=== PATIENT | female | born 1980 | race Caucasian/White ===

== ENCOUNTER 2020-04-15 11:21 | Emergency (ER) | payer SELFPAY ==
[~2020-04-15] VITALS: Ht 157 cm; Wt 72.5 kg
[2020-04-15] MEDS ORDERED: ONDANSETRON 4 MG/2 ML (SDV) Z0FRAN IVP ONE (12:15)
[2020-04-15] MEDS ORDERED: KETOROLAC 30 MG/ML VIAL IVP ONE (12:15)
[2020-04-15] MEDS ORDERED: NS IV 1000 ML 1,000 ML IV SCH (12:15)
[2020-04-15 12:34] LABS: POTASSIUM 4.1 MMOL/L (3.6-5.0)
[2020-04-15 12:35] LABS: CALCIUM 9.1 MG/DL (8.5-10.1)
--- NOTE | 2020-04-15 12:39 | ED Abdominal Pain ---
General Chief Complaint: Abdominal/GI Problems Stated Complaint: R SIDE PAIN/NAUSEA Nursing Triage Note: PT PRESENTS TO ED WITH COMPLAINTS OF R FLANK PAIN THAT RADIATES TO HER R LOWER ABDOMEN. PT REPORTS IS STARTED SUDDENLY THIS AM WHEN SHE WAS AT WORK. PT ALSO REPORTS ONE EPISODE OF NAUSEA AND VOMITING. Sepsis Screen: No Definite Risk Source of Information: Patient Exam Limitations: No Limitations History of Present Illness Date Seen by Provider: Apr 15, 2020 Time Seen by Provider: 12:35 Initial Comments Patient is a 40-year-old female who presents to the emergency department today with a chief complaint of right flank pain. Patient states her pain started suddenly this morning while she was at work. She has never had pain like this before. She does state that she has a family history of kidney stones one in her son and one in her sister. Patient states that she has had nausea and vomiting x1. She denies any GI complaints other than the nausea and vomiting. No diarrhea no black or bloody stools. No reported fevers or chills. No abno rmal vaginal discharge. She is not taken anything for her pain. All other review of systems reviewed and negative except as stated above. Timing/Duration: 4-6 Hours Severity/Quality: Severe Location: RLQ, Flank (Right flank) Radiation: RLQ Activities at Onset: Activity (Patient was at work at the onset of her pain) Modifying Factors: Improves With Vomiting Associated Symptoms: Denies Symptoms Allergies and Home Medications Allergies Coded Allergies: No Known Drug Allergies (Unverified , 04/15/20) Patient Home Medication List Home Medication List Reviewed: Yes Review of Systems Review of Systems Constitutional: see HPI EENTM: No Symptoms Reported Respiratory: No Symptoms Reported Cardiovascular: No Symptoms Reported Gastrointestinal: Abdominal Pain, Nausea, Vomiting Genitourinary: Denies Frequency, Denies Urgency Musculoskeletal: no symptoms reported Skin: no symptoms reported All Other Systems Reviewed Negative Unless Noted: Yes Past [id number]-[id number]-[id number] Hx Patient Social History Alcohol Use: Denies Use Smoking Status: Current Everyday Smoker Type Used: Cigarettes Recent Infectious Disease Expo: No Recent Hopitalizations: No Seasonal Allergies Seasonal Allergies: No Past Medical History Surgeries: Yes Section, Gallbladder Respiratory: No Cardiac: No Neurological: No Genitourinary: No Gastrointestinal: No Musculoskeletal: No Endocrine: No HEENT: No Cancer: No Psychosocial: No Integumentary: No Blood Disorders: No Physical Exam Vital Signs Vital Signs - First Documented 04/15/20 11:33 Temp 35.9 Pulse 73 Resp 18 B/P (MAP) 142/49 (80) Pulse Ox 100 Capillary Refill : Less Than 3 Seconds Height/Weight/BMI Height: '" Weight: lbs. oz. kg; 29.00 BMI Method: General Appearance: WD/WN, moderate distress HEENT: PERRL/EOMI Neck: full range of motion Respiratory: lungs clear, normal breath sounds, no respiratory distress, no accessory muscle use Cardiovascular: regular rate, rhythm, no murmur Gastrointestinal: normal bowel sounds, non tender, soft Extremities: normal range of motion, non-tender, normal inspection Neurologic/Psychiatric: alert, normal mood/affect, oriented x 3 Skin: normal color, warm/dry Progress/Results/Core Measures Results/Orders Lab Results Laboratory Tests Test 04/15/20 12:14 04/15/20 13:24 Range/Units Sodium Level 136 135-145 MMOL/L Potassium Level 4.1 3.6-5.0 MMOL/L Chloride Level 104 98-107 MMOL/L Carbon Dioxide Level 23 21-32 MMOL/L Anion Gap 9 5-14 MMOL/L Blood Urea Nitrogen 12 7-18 MG/DL Creatinine 1.09 0.60-1.30 MG/DL Estimat Glomerular Filtration Rate 55 BUN/Creatinine Ratio 11 Glucose Level 114 H 70-105 MG/DL Calcium Level 9.1 8.5-10.1 MG/DL Urine Color YELLOW Urine Clarity SL CLOUDY Urine pH 6.0 5-9 Urine Specific [place] 1.025 H 1.016-1.022 Urine Protein TRACE H NEGATIVE Urine Glucose (UA) NEGATIVE NEGATIVE Urine Ketones NEGATIVE NEGATIVE Urine Nitrite NEGATIVE NEGATIVE Urine Bilirubin NEGATIVE NEGATIVE Urine Urobilinogen 0.2 < = 1.0 MG/DL Urine Leukocyte Esterase NEGATIVE NEGATIVE Urine RBC (Auto) 3+ H NEGATIVE Urine RBC >100 H /HPF Urine WBC 0-2 /HPF Urine Squamous Epithelial Cells RARE /HPF Urine Crystals NONE /LPF Urine Bacteria NEGATIVE /HPF Urine Casts NONE /LPF Urine Mucus NEGATIVE /LPF Urine Culture Indicated NO My Orders Orders - GAURAV MCGHEE MD Ed Iv/Invasive Line Start (04/15/20 11:55) Ua Culture If Indicated (04/15/20 11:55) Basic Metabolic Panel (04/15/20 11:55) Urine Bedside (04/15/20 11:55) Ketorolac Injection (Toradol Injection) (04/15/20 12:15) Ondansetron Injection (Zofran Injectio (04/15/20 12:15) Ns Iv 1000 Ml (Sodium Chloride 0.9%) (04/15/20 12:15) Medications Given in ED Current Medications Medications Dose Ordered Sig/Mily Route Start Time Stop Time Status Last Admin Dose Admin Ketorolac Tromethamine 15 mg ONCE ONCE IVP 04/15/20 12:15 04/15/20 12:16 DC 04/15/20 12:22 15 MG Ondansetron HCl 8 mg ONCE ONCE IVP 04/15/20 12:15 04/15/20 12:16 DC 04/15/20 12:21 8 MG Vital Signs/I&O 04/15/20 11:33 Temp 35.9 Pulse 73 Resp 18 B/P (MAP) 142/49 (80) Pulse Ox 100 Blood Pressure Mean: 80 Progress Progress Note : Time: 12:36 Progress Note Patient did have an episode of nausea and vomiting while I was examining her in the room. Patient states that her pain subsided after vomiting. 1339 Patient remains pain-free. She is comfortable without any abdominal or flank pain whatsoever. She does have hematuria. Counseled the patient on likely this was a kidney stone that has passed as her pain is completely resolved. But have given the patient good return precautions. I advised that she drink plenty of fluids throughout the day and take another dose of ibuprofen later in the afternoon. She verbalizes understanding. All questions are sought and answered and she is stable for discharge with a diagnosis of renal colic. Departure Impression Primary Impression: Renal colic on right side Disposition: 01 HOME, SELF-CARE Condition: Stable Departure-Patient Inst. Decision time for Depature: 13:40 Referrals: [facility] [place] PHYSICIAN (PCP) Primary Care Physician Patient Instructions: Renal Colic (DC) Add. Discharge Instructions: Drink lots of fluids throughout the day today to stay well-hydrated and flush out your kidneys. You can take [id number] ibuprofen, 3 tablets which is 600 mg of ibuprofen every 6 hours as needed for pain with food. If the pain returns in severity, if you have nausea vomiting or fever or any other emergent concerns please come back to the emergency room for reevaluation. GAURAV MCGHEE MD Apr 15, 2020 12:38
[2020-04-15 12:40] LABS: CREATININE SERUM 1.09 MG/DL (0.60-1.30)
[2020-04-15 13:29] LABS: BILIRUBIN,URINE NEGATIVE (NEGATIVE); CLARITY,URINE SL CLOUDY; COLOR,URINE YELLOW; GLUCOSE, URINE (UA) NEGATIVE (NEGATIVE); KETONES,URINE NEGATIVE (NEGATIVE); LEUKOCYTE ESTERASE ,URINE NEGATIVE (NEGATIVE); NITRITE,URINE NEGATIVE (NEGATIVE); PROTEIN,URINE TRACE (NEGATIVE)
[2020-04-15 13:35] LABS: RBC,URINE >100 /HPF; WBC,URINE 0-2 /HPF
[2020-04-15 13:36] LABS: BACTERIA,URINE NEGATIVE /HPF; SQUAMOUS EPITHELIAL CELL,UR RARE /HPF
[2020-04-15 13:51] VITALS: BP 135/62
== END 2020-04-15 13:51 | disposition home or self-care (01) ==
LOC: EDUNIT# 11:21 → ER 11:23
DX: N23 Unspecified renal colic (principal); F17.210 Nicotine dependence, cigarettes, uncomplicated
CPT/HCPCS: 36415; 80048; 81000